=== PATIENT | male | born 1960 | race African-American/Black ===

== ENCOUNTER 2016-12-03 14:22 | Emergency (ER) | END 2016-12-03 18:00 | disposition home or self-care (01) | DX: R63.1 Polydipsia (principal); R35.8 Other polyuria; R53.1 Weakness; H53.8 Other visual disturbances; Z79.84 Long term (current) use of oral hypoglycemic drugs | CPT/HCPCS: 36415; 80053; 81003; 82962; 83690; 83735; 84100; 84484; 85025; 93005; 96372; 96374; 96375; J1815; J2270; J2405; J7030; Z7502 ==